=== PATIENT | female | born 1965 | race Caucasian/White ===

== ENCOUNTER 2016-10-30 10:39 | Emergency (ER) | payer SELFPAY ==
[2016-10-30 11:01] VITALS: TEMP 98.4; BMI 30.8
[2016-10-30 11:28] LABS: AUTOMATED BASOPHIL 0.5 % (0-2); AUTOMATED EOSINOPHIL 2.1 % (0-5); AUTOMATED LYMPH 12.3 % (17-44); AUTOMATED MONOCYTE 7.5 % (3-10); AUTOMATED NEUTROPHIL 77.6 % (45-76); MPV 7.5 fL (7.4-10.4)
[2016-10-30 11:42] LABS: BLOOD UREA NITROGEN 11 MG/DL (7-17); CALCIUM 9.9 MG/DL (8.4-10.2); CALCULATED OSMOLALITY 266 MOs/Kg (270-290); CHLORIDE 99 mEq/L (98-107); GLUCOSE 115 MG/DL (70-99); SODIUM LEVEL 138 mEq/L (137-146)
[2016-10-30 11:44] LABS: RBC/URINE 0-2 (0-5); WBC/URINE TNTC (0-5)
[2016-10-30 12:02] LABS: LEUKOCYTES/URINE 2+ (NEGATIVE); NITRITE/URINE NEG (NEGATIVE); URINE OCCULT BLOOD TRACE (NEG/TRACE)
[2016-10-30] MEDS ORDERED: KETOROLAC TROMETH 30 MG/ML VIAL IV ONE (13:07)
[2016-10-30] MEDS ORDERED: CEFTRIAXONE 1 GM in D5W 100 ML IV ONE (13:07)
[2016-10-30] MEDS ORDERED: NS 1,000 ML IV ONE (13:07)
[2016-10-30] MEDS ORDERED: ONDANSETRON HCL 4 MG/2 ML VIAL IV ONE (13:07)
[2016-10-30] MEDS ORDERED: SODIUM CHLORIDE 0.9% 3 ML FLUSH FLUSH PRN (13:07)
--- NOTE | 2016-10-30 13:21 | EDPRACDOC ---
- General Information Chief Complaint: Abdominal Pain Stated Complaint: VOMITING/ ABD PAIN Time Seen by Provider: 10/30/16 12:55 Information Source: Patient Mode Of Arrival: Car Home Medications: Home Medications Atenolol [Tenormin] 50 mg PO DAILY 04/29/16 Oxycodone HCl [Oxycodone Immediate Release] 15 mg PO 5XD PRN 04/29/16 Pravastatin [Pravachol] 20 mg PO BID 04/29/16 Hydrochlorothiazide 25 mg PO DAILY 09/28/16 Ibuprofen 600 mg PO TID #20 tablet 09/28/16 Promethazine [Phenergan] 25 mg PO Q6-8H PRN #3 tab 09/28/16 Ondansetron HCl [Zofran] 4 mg PO Q6H PRN #15 tab 10/30/16 Phenazopyridine [Pyridium] 100 mg PO TID #6 tab 10/30/16 Sulfamethoxazole/Trimethoprim [Bactrim Ds Tablet] 1 tab PO BID #20 tab 10/30/16 Allergies/Adverse Reactions: Allergies Allergy/AdvReac Type Severity Reaction Status Date / Time acetaminophen [From Vicodin] Allergy Severe Nausea/Vomi Verified 10/30/16 10:58 ting hydrocodone bitartrate Allergy Severe RASH Verified 10/30/16 10:58 [From Vicodin] - History of Present Illness Onset: 4 days HPI: Patient reports lower abdominal pain/bladder pain for 4 days, reports cough/ congestion with green sputum. Reports pain with urination, nausea/vomiting x 4 days as well. Patient denies fever, chills, ear pain or sore throat. Pain Location: Reports: Suprapubic Pain Context: Reports: Spontaneous Pain Severity: Mild Pain Quality: Reports: Cramping Pain Radiation: Reports: No Radiation Blood Type: Unknown Adult Abdominal History: Denies: Urolithiasis, Bowel Obstruction Female Abdominal History: Denies: UTI, Ectopic, PID, Urolithiasis Female Associated Signs & Symptoms: Reports: Nausea, Vomiting, Dysuria, Urgency. Denies: Diarrhea, Fever, Chills, Vaginal Discharge Oral Intake: Normal Urinary Output: Normal ED Past Medical History - History Reviewed Yes Nurses notes reviewed and agree except as marked - Patient Medical History Neurological History: Reports: Seizures (11/2014 last one) Cardiac History: Reports: Hypertension, Hypercholesterolemia Respiratory History: Reports: COPD GI/ History: Reports: Gastroesophageal Reflux. Denies: Urinary Tract Infection Musculoskeletal History: Reports: Arthritis, Osteoarthritis Psychological History: Reports: Depression, Anxiety. Denies: Substance Use Disorder Systemic History: Reports: Anemia (iron def.). Denies: Cancer Additional Past Medical History: OPHTHALMIC HERPES. RECURRENT ABDOMINAL PAIN Surgical History: Reports: Cholecystectomy, Hysterectomy, Tonsillectomy/ Adnoidectomy - Family Medical History Reports: Hypertension (Parents), Diabetes (Mother), Cardiac Disorders (Father, sister). Denies: Cancer, Stroke - Social Medical History Smoking Status: Never smoker Social History: Denies: Barbiturate Use, Benzodiazipine Use, Substance Use Disorder ETOH: None Substance Abuse: None Lives In: Home EDM Review of Systems - Review of Systems ROS Negative Except as Marked: Yes All systems reviewed and were negative except as marked Constitutional: No Symptoms Reported Eyes: No Symptoms Reported Ears: No Symptoms Reported Throat: No Symptoms Reported Nose: Congestion Mouth: No Symptoms Reported Respiratory: Cough, Sputum Cardiovascular: No Symptoms Reported Gastrointestinal: Nausea, Pain, Vomiting Genitourinary: Dysuria Neurological: No Symptoms Reported Musculoskeletal: No Symptoms Reported - Physical Exam Constitutional: Alert (Awake), No apparent distress Oriented to: Time, Person, Place Last recorded Vital Signs: Last Vital Signs Temp 98.4 F 10/30/16 10:58 Pulse 76 10/30/16 13:27 Resp 20 10/30/16 13:27 BP 103/68 10/30/16 13:27 Pulse Ox 94 10/30/16 13:27 Oxygen Pulse Oxygen Saturation 94 O2 Device Room Air Oxygen Flow Rate Fraction of Inspired Oxygen ( FIO2) - HEENT Head: Normal Eye Exam: Normal (PERRL, EOMI, Sclera white) Nose: No Symptoms Reported (septum midline) Neck: Normal (FROM, trachea at midline) - Respiratory/Cardiovascular Respiratory: Normal - CTA (BBS clear to auscultation without adventitious sounds ) Cardiovascular: Normal (RRR without murmur, gallop or rub) - GI Auscultation: Normal (NABS) Tenderness: Non tender - Musculoskeletal Back: Normal (Non-Tender) Extremities: Normal (Normal tone, Pulses 2+ No cyanosis or edema, FROM) - Integumentary Skin: Normal, Warm, Dry Lymphatics: Normal (no adenopathy) - Neurologic Memory Impaired: Normal Motor Function: Normal (Normal tone, Pulses 2+ No cyanosis or edema, FROM) Mood Description: Normal Thought: Coherent - Re-evaluation Re-evaluation 1 Re-evaluation Time: 13:49 Discussed results with patient - d/c with abx and nausea medication. - Results 10/30/16 11:18 10/30/16 11:18 WBC 14.4 xk/uL (3.8-10.8) H 10/30/16 11:18 RBC 4.30 xM/uL (4.20-5.40) 10/30/16 11:18 Hgb 13.2 g/dL (12.0-16.0) 10/30/16 11:18 Hct 38.3 % (36-47) 10/30/16 11:18 MCV 89 fL (81-99) 10/30/16 11:18 MCH 30.7 pg (27-32) 10/30/16 11:18 MCHC 34.5 g/dl (33-36) 10/30/16 11:18 RDW 13.4 % (11.5-14.5) 10/30/16 11:18 Plt Count 313 xk/uL (130-400) 10/30/16 11:18 MPV 7.5 fL (7.4-10.4) 10/30/16 11:18 Neut % (Auto) 77.6 % (45-76) H 10/30/16 11:18 Lymph % (Auto) 12.3 % (17-44) L 10/30/16 11:18 Weston % (Auto) 7.5 % (3-10) 10/30/16 11:18 Eos % (Auto) 2.1 % (0-5) 10/30/16 11:18 Baso % (Auto) 0.5 % (0-2) 10/30/16 11:18 Absolute Neuts (auto) 11.09 xk/uL (1.7-8.2) H 10/30/16 11:18 Absolute Lymphs (auto) 1.73 xk/uL (0.65-4.75) 10/30/16 11:18 Sodium 138 mEq/L (137-146) 10/30/16 11:18 Potassium 4.1 mEq/L (3.5-5.1) 10/30/16 11:18 Chloride 99 mEq/L (98-107) 10/30/16 11:18 Carbon Dioxide 29 mMOL/L (22-33) 10/30/16 11:18 Anion Gap 14 mEq/L (8-16) 10/30/16 11:18 BUN 11 MG/DL (7-17) 10/30/16 11:18 Creatinine 0.80 MG/DL (0.52-1.04) 10/30/16 11:18 Estimated GFR (MDRD) > 60 mL/min (>=60) 10/30/16 11:18 Glucose 115 MG/DL (70-99) H 10/30/16 11:18 Calculated Osmolality 266 MOs/Kg (270-290) L 10/30/16 11:18 Calcium 9.9 MG/DL (8.4-10.2) 10/30/16 11:18 Total Bilirubin 0.7 MG/DL (0.2-1.3) 10/30/16 11:18 AST 46 IU/L (14-36) H 10/30/16 11:18 ALT 62 IU/L (9-52) H 10/30/16 11:18 Alkaline Phosphatase 109 IU/L (38-126) 10/30/16 11:18 Total Protein 8.0 G/DL (6.3-8.2) 10/30/16 11:18 Albumin 4.5 G/DL (3.5-5.0) 10/30/16 11:18 Urine Color Yellow 10/30/16 11:02 Urine Clarity Clear 10/30/16 11:02 Urine pH 8.0 (5.0-8.0) 10/30/16 11:02 Ur Specific Clare 1.005 (1.003-1.035) 10/30/16 11:02 Urine Protein Neg (NEG/TRACE) 10/30/16 11:02 Urine Glucose (UA) Neg (NEGATIVE) 10/30/16 11:02 Urine Ketones Neg (NEGATIVE) 10/30/16 11:02 Urine Occult Blood Trace (NEG/TRACE) 10/30/16 11:02 Urine Nitrite Neg (NEGATIVE) 10/30/16 11:02 Urine Bilirubin Neg (NEGATIVE) 10/30/16 11:02 Urine Urobilinogen 0.2 MG/DL (0-1) 10/30/16 11:02 Ur Leukocyte Esterase 2+ (NEGATIVE) H 10/30/16 11:02 Urine RBC 0-2 (0-5) 10/30/16 11:02 Urine WBC Tntc (0-5) H 10/30/16 11:02 Ur Epithelial Cells Occ 10/30/16 11:02 Urine Bacteria 3+ (NEG/FEW) H 10/30/16 11:02 Lab Results 10/30/16 10/30/16 10/30/16 11:18 11:18 11:02 WBC 14.4 H RBC 4.30 Hgb 13.2 Hct 38.3 MCV 89 MCH 30.7 MCHC 34.5 RDW 13.4 Plt Count 313 MPV 7.5 Neut % (Auto) 77.6 H Lymph % (Auto) 12.3 L Weston % (Auto) 7.5 Eos % (Auto) 2.1 Baso % (Auto) 0.5 Absolute Neuts (auto) 11.09 H Absolute Lymphs (auto) 1.73 Sodium 138 Potassium 4.1 Chloride 99 Carbon Dioxide 29 Anion Gap 14 BUN 11 Creatinine 0.80 Estimated GFR (MDRD) > 60 Glucose 115 H Calculated Osmolality 266 L Calcium 9.9 Total Bilirubin 0.7 AST 46 H ALT 62 H Alkaline Phosphatase 109 Total Protein 8.0 Albumin 4.5 Urine Color Yellow Urine Clarity Clear Urine pH 8.0 Ur Specific Clare 1.005 Urine Protein Neg Urine Glucose (UA) Neg Urine Ketones Neg Urine Occult Blood Trace Urine Nitrite Neg Urine Bilirubin Neg Urine Urobilinogen 0.2 Ur Leukocyte Esterase 2+ H Urine RBC 0-2 Urine WBC Tntc H Ur Epithelial Cells Occ Urine Bacteria 3+ H Decision Time to Discharge: 13:49 - Departure Disposition: Home Condition: Good Final Diagnosis: Urinary tract infection Qualifiers: Urinary tract infection type: site unspecified Hematuria presence: without hematuria Qualified Code(s): N39.0 - Urinary tract infection, site not specified URI (upper respiratory infection) Qualifiers: URI type: unspecified URI Qualified Code(s): J06.9 - Acute upper respiratory infection, unspecified Instructions: Urinary Tract Infection in Women (ED), Acute Abdominal Pain (ED) , Dysuria Education/Counseling Given To: Patient Education/Counseling Given Regarding: Diagnosis, Treatment, Prognosis, Follow Up Referrals: None,No Provider [Primary Care Provider] - One Week Prescriptions: New Phenazopyridine [Pyridium] 100 mg PO TID #6 tab Sulfamethoxazole/Trimethoprim [Bactrim Ds Tablet] 1 tab PO BID #20 tab Ondansetron HCl [Zofran] 4 mg PO Q6H PRN #15 tab PRN Reason: Nausea/Vomiting No Action Pravastatin [Pravachol] 20 mg PO BID Oxycodone HCl [Oxycodone Immediate Release] 15 mg PO 5XD PRN PRN Reason: Pain Atenolol [Tenormin] 50 mg PO DAILY Hydrochlorothiazide 25 mg PO DAILY Ibuprofen 600 mg PO TID #20 tablet Promethazine [Phenergan] 25 mg PO Q6-8H PRN #3 tab PRN Reason: Nausea/Vomiting Additional Instructions: Please followup with PCP in 1-2days. Drink plenty of fluids at home. Return if worse/different.
[2016-10-30] MEDS ORDERED: PROMETHAZINE 25 MG/ML VIAL IV ONE (13:56)
--- NOTE | 2016-10-30 14:03 | DIRPT ---
CLINICAL DATA: Productive cough and chest congestion. EXAM: CHEST 2 VIEW COMPARISON: 09/28/2016 FINDINGS: Heart size and pulmonary vascularity are normal. There is peribronchial thickening on the right. No infiltrates or effusions. No significant osseous abnormality. IMPRESSION: Bronchitic changes. Electronically Signed By: Praveen Braswell M.D. On: 10/30/2016 14:01
[2016-10-30 14:04] VITALS: BP 104/70; PULSE 77
[2016-10-30] MEDS ORDERED: SODIUM CHLORIDE 0.9% 3 ML FLUSH FLUSH SCH (18:00)
== END 2016-10-30 14:10 | disposition home or self-care (01) ==
LOC: ED 10:39
DX: N39.0 Urinary tract infection, site not specified (principal); J06.9 Acute upper respiratory infection, unspecified
CPT/HCPCS: 36415; 71020; 80053; 81001; 85025; 96365; 96375; 99283; J0696; J1885; J2405; J2550; J7060